=== PATIENT | male | born 1990 | race Caucasian/White ===

== ENCOUNTER 2017-10-18 21:46 | Emergency (ER) | payer SELFPAY ==
[2017-10-18 22:19] VITALS: BP 118/65; PULSE 68; TEMP 97.9; O2SAT 97
--- NOTE | 2017-10-18 23:07 | C.PDOC ---
History Of Present Illness 27 y/o male presents to the ED for evaluation of a laceration to his right thumb , sustained just prior to arrival. Patient states he accidentally cut the finger on a kitchen knife. Tetanus is up to date. He denies any weakness, numbness, or tingling. Time Seen by Provider: 10/18/17 22:20 Chief Complaint (Nursing): Abnormal Skin Integrity History Per: Patient History/Exam Limitations: no limitations Onset/Duration Of Symptoms: Mins Current Symptoms Are (Timing): Still Present Past Medical History Reviewed: Historical Data, Nursing Documentation, Vital Signs Vital Signs: Last Vital Signs Temp 97.9 F 10/18/17 22:15 Pulse 68 10/18/17 22:15 Resp 20 10/18/17 23:57 BP 118/65 10/18/17 22:15 Pulse Ox 97 10/18/17 23:09 - Medical History PMH: No Chronic Diseases Surgical History: No Surg Hx Family History: States: Unknown Family Hx - Social History Hx Alcohol Use: Yes Hx Substance Use: No - Immunization History Hx Tetanus Toxoid Vaccination: No Hx Influenza Vaccination: No Hx Pneumococcal Vaccination: No Review Of Systems Except As Marked, All Systems Reviewed And Found Negative. Musculoskeletal: Positive for: Other (right thumb injury) Skin: Positive for: Lesions Neurological: Negative for: Weakness, Numbness (and tingling) Physical Exam - Physical Exam Appears: Well, Non-toxic, No Acute Distress Skin: Normal Color, Warm, Dry Head: Atraumatic, Normacephalic Eye(s): bilateral: Normal Inspection Extremity: Normal ROM, Other (Stellate 1 cm v-shaped laceration to the palmar aspect of distal right thumb, no tendon injury, capillary refill is good) Pulses: Left Radial: Normal, Right Radial: Normal Neurological/Psych: Oriented x3, Normal Speech, Normal Motor, Normal Sensation ED Course And Treatment O2 Sat by Pulse Oximetry: 97 (RA) Pulse Ox Interpretation: Normal Progress Note: Laceration repaired using Dermabond and steri strips without difficulty. Patient tolerated procedure well. Counseled regarding wound care instructions. Patient is stable for discharge home Laceration - Laceration Repair right thumb Wound Length (In cm): 1 Description Of Wound: Stellate Wound Examination: Irrigated With Saline, No FB With Wound Exploration, No Tendon Injury With Wound Exploration Wound Closure: Steri Strips (x2), Skin Glue Wound Complexity: Simple Disposition Counseled Patient/Family Regarding: Diagnosis, Need For Followup - Disposition Referrals: [facility] [Outside] Disposition: HOME/ ROUTINE Disposition Time: 23:05 Condition: STABLE Additional Instructions: KEEP FINGER DRY AND CLEAN FOR 2 DAYS RETURN TO ER IF WORSE Instructions: Laceration Repair With Glue (DC) Forms: [employer] (Greek) Print Language: GREEK - POA Present On Arrival: None - Clinical Impression Clinical Impression: Finger laceration - 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 - Scribe Statement The provider has reviewed the documentation as recorded by the Scribe (Kelly Humphries) All medical record entries made by the Scribe were at my direction and personally dictated by me. I have reviewed the chart and agree that the record accurately reflects my personal performance of the history, physical exam, medical decision making, and the department course for this patient. I have also personally directed, reviewed, and agree with the discharge instructions and disposition.
[2017-10-18 23:58] VITALS: RESP 20
== END 2017-10-18 23:57 | disposition home or self-care (01) ==
LOC: C.ER 21:46
DX: S61.011A Laceration without foreign body of right thumb without damage to nail, initial encounter (principal); W26.0XXA Contact with knife, initial encounter